=== PATIENT | female | born 1980 | race Asian ===

== ENCOUNTER 2018-09-21 20:48 | Emergency (ER) | payer MEDICAID ==
[~2018-09-21] VITALS: Ht 154.9 cm; Wt 54.4 kg
--- NOTE | 2018-09-21 21:05 | NUR ---
TO BED 3 AMBULATORY BIB S/O C/O MIDSTERNAL CHEST PAIN WITH SOB AND DIZZINESS SINCE LAST NIGHT. PT AAOX4 NO ACUTE DISTRESS NOTED, RESP EVEN AND UNLABORED. SKIN WARM, NONDIAPHORETIC, LUNG SOUNDS CLEAR BILATERALLY. PLACE PT ON CARDIAC MONITORING, CONTINUOUS POX. PENDING ER MD [place].
[2018-09-21 21:28] LABS: BASOPHILS # (AUTO) 0.1 /CMM (0.0-0.2); BASOPHILS % (AUTO) 0.5 % (0.0-2.0); EOSINOPHILS % (AUTO) 15.3 % (0.0-6.0); HEMATOCRIT 34 % (33-45); HEMOGLOBIN 11.3 g/dL (11.5-14.8); LYMPHOCYTES % (AUTO) 19.9 % (20.0-44.0); MEAN CORPUSCULAR HGB CONC 33 g/dl (31.0-36.0); MEAN CORPUSCULAR VOLUME 81 fL (82-100); MONOCYTES # (AUTO) 0.6 /CMM (0.1-1.30); MONOCYTES % (AUTO) 6.5 % (2.0-12.0); NEUTROPHILS # (AUTO) 5.7 /CMM (1.8-8.9); NEUTROPHILS % (AUTO) 57.8 % (43.0-81.0); PLATELET COUNT (AUTO) 319 /CMM (150-450); WHITE BLOOD COUNT (AUTO) 9.9 K/uL (4.3-11.0)
--- NOTE | 2018-09-21 21:28 | NUR ---
PT MEDICATED ORDERED.
[2018-09-21] MEDS ORDERED: IV NS 0.9% 1,000 ML BAG IV ONE (21:30)
[2018-09-21 21:35] LABS: CALCIUM, SERUM 8.4 mg/dL (8.5-10.1); CARBON DIOXIDE 27 mmol/L (21-32); CHLORIDE 102 mmol/L (98-107); CREATININE 0.6 mg/dL (0.6-1.3); GLUCOSE 123 mg/dL (74-106); POTASSIUM 3.6 mmol/L (3.5-5.1); SODIUM SERUM 139 mmol/L (136-145); UREA NITROGEN, BLOOD 11 mg/dL (7-18)
--- NOTE | 2018-09-21 22:12 | NUR ---
PT VERBALIZE RELEIF OF CHEST PAIN. ER MD MADE AWARE.
--- NOTE | 2018-09-21 22:31 | NUR ---
BRYANT STANTON AT BEDSIDE.
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
[2018-09-21 23:10] VITALS: BP 131/80
--- NOTE | 2018-09-21 23:21 | NUR ---
IV removed. Catheter intact and site benign. Pressure and 4x4 applied to site. No bleeding noted. Patient discharged to home in stable condition. Written and verbal after care instructions given. Patient verbalizes understanding of instruction. ambulatory with a steady gait noted. pt aaox4 no acute distress noted, resp even and unlabored. Pt S/O at bedside to take pt home.
== END 2018-09-21 23:22 | disposition home or self-care (01) ==
LOC: ER 20:54
DX: O99.511 Diseases of the respiratory system complicating pregnancy, first trimester (principal); R06.02 Shortness of breath; R07.89 Other chest pain; Z3A.10 10 weeks gestation of pregnancy
CPT/HCPCS: 36415; 71045; 80048; 84484; 84702; 85025; 85378; 93005; 93970; 99284; J7030

== ENCOUNTER 2018-10-23 22:28 | Emergency (ER) | payer MEDICAID ==
[~2018-10-23] VITALS: Ht 154.9 cm; Wt 56.2 kg
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
--- NOTE | 2018-10-23 23:24 | NUR ---
[employer] AT BEDSIDE FOR BLOOD DRAW.
[2018-10-23 23:37] LABS: APPEARANCE,URINE Clear (CLEAR); BILIRUBIN,URINE Negative (NEGATIVE); BLOOD, URINE Negative Ery/uL (NEGATIVE); COLOR,URINE Yellow (YELLOW); KETONES,URINE Negative (NEGATIVE); LEUKOCYTE ESTERASE ,URINE Negative (NEGATIVE); NITRITE, URINE Negative (NEGATIVE); PROTEIN,URINE Negative (NEGATIVE); UGLUCOSE Negative (NEGATIVE); UROBILINOGEN,URINE 0.2 EU/dL (0.2)
[2018-10-23 23:37] LABS: BASOPHILS % (AUTO) 0.4 % (0.0-2.0); EOSINOPHILS % (AUTO) 6.1 % (0.0-6.0); HEMATOCRIT 35 % (33-45); HEMOGLOBIN 11.6 g/dL (11.5-14.8); LYMPHOCYTES # (AUTO) 2.1 /CMM (0.8-4.8); LYMPHOCYTES % (AUTO) 16.6 % (20.0-44.0); MEAN CORPUSCULAR HGB CONC 33 g/dl (31.0-36.0); MEAN CORPUSCULAR VOLUME 84 fL (82-100); MONOCYTES # (AUTO) 0.7 /CMM (0.1-1.30); MONOCYTES % (AUTO) 5.7 % (2.0-12.0); NEUTROPHILS # (AUTO) 8.9 /CMM (1.8-8.9); NEUTROPHILS % (AUTO) 71.2 % (43.0-81.0); PLATELET COUNT (AUTO) 262 /CMM (150-450); RED BLOOD CELL COUNT(AUTO) 4.18 MIL/uL (4.0-5.2); WHITE BLOOD COUNT (AUTO) 12.5 K/uL (4.3-11.0)
[2018-10-23 23:47] LABS: CALCIUM, SERUM 9.3 mg/dL (8.5-10.1); CREATININE 0.5 mg/dL (0.6-1.3); POTASSIUM 4.2 mmol/L (3.5-5.1)
[2018-10-24] MEDS ORDERED: ACETAMINOPHEN 325 MG TABLET PO ONE
[2018-10-24] MEDS ORDERED: ACETAMINOPHEN 325 MG TABLET ONE (00:37)
--- NOTE | 2018-10-24 00:52 | NUR ---
[facility] TECH AT [facility] FOR [facility].
--- NOTE | 2018-10-24 02:03 | NUR ---
Patient discharged to home in stable condition. Written and verbal after care instructions given. Patient verbalizes understanding of instruction. ambulatory with a steady gait noted. pt aaox4 no acute distress noted, resp even and unlabored. pt at bedside to take pt home.
[2018-10-24 02:05] VITALS: BP 119/73
== END 2018-10-24 02:06 | disposition home or self-care (01) ==
LOC: ER 22:32
DX: O26.892 Other specified pregnancy related conditions, second trimester (principal); R10.2 Pelvic and perineal pain; Z3A.15 15 weeks gestation of pregnancy; Z98.890 Other specified postprocedural states
CPT/HCPCS: 36415; 76700-TC; 76856-TC; 80048-TC; 81000-TC; 84702-TC; 85025-TC

== ENCOUNTER 2020-06-01 13:24 | Emergency (ER) | payer MEDICAID ==
[~2020-06-01] VITALS: Ht 154.9 cm; Wt 52.2 kg
[2020-06-01 13:32] VITALS: BP 136/102
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
[2020-06-01] MEDS ORDERED: CYCL5TAB PO (14:19)
[2020-06-01] MEDS ORDERED: IBUP-1957 PO (14:19)
[2020-06-01] MEDS ORDERED: ONDA4TAB11 PO (14:19)
[2020-06-01] MEDS ORDERED: ACETAMINOPHEN ES 500 MG TABLET PO ONE (14:30)
--- NOTE | 2020-06-01 14:54 | NUR ---
Patient discharged to home in stable condition. Written and verbal after care instructions given. Patient verbalizes understanding of instruction. The patient left ER in stable condition.
== END 2020-06-01 14:54 | disposition home or self-care (01) ==
LOC: ER 13:31
DX: S06.0X0A Concussion without loss of consciousness, initial encounter (principal); S13.4XXA Sprain of ligaments of cervical spine, initial encounter; Z98.890 Other specified postprocedural states; Z79.899 Other long term (current) drug therapy; V49.49XA Driver injured in collision with other motor vehicles in traffic accident, initial encounter; Y93.89 Activity, other specified; Y92.413 State road as the place of occurrence of the external cause; Y99.8 Other external cause status